=== PATIENT | male | born 1995 | race Caucasian/White ===

== ENCOUNTER 2017-09-23 20:22 | Inpatient (IN) | payer OTHER ==
[2017-09-23 21:36] LABS: ABS Basophils 0.1 10^3/ul (0-0.2); ABS Eosinophils 0.1 10^3/ul (0-0.6); ABS Lymphocytes 1.9 10^3/ul (1.0-4.8); ABS Monocytes 0.7 10^3/ul (0-0.8); ABS Neutrophils 5.3 10^3/ul (1.5-7.7); ABS Nucleated RBC 0 10^3/ul; Eosinophil % 1.1 % (0-6); Hematocrit 50 % (35-47); Hemoglobin 17.4 g/dl (12.0-16.0); Lymphocyte % 23.9 % (25-47); Mean Corpuscular HGB Conc 35 g/dl (31-36); Mean Corpuscular Hemoglobin 30 pg (27-31); Mean Corpuscular Volume 85 fL (80-97); Mean Platelet Volume 8.1 um3 (7.4-10.4); Nucleated Red Blood Cells % 0; Platelet Count 214 10^3/ul (150-450); Red Blood Count 5.86 10^6/ul (4.0-5.4); Red Cell Distribution Width 12 % (10.5-15); White Blood Count 8.1 10^3/ul (3.5-10.8)
[2017-09-23 21:57] LABS: Urine Appearance Cloudy; Urine Blood Negative (Negative); Urine Color Yellow; Urine Ketones Negative (Negative); Urine Protein Negative (Negative); Urine Specific Gravity 1.017 (1.010-1.030); Urine Urobilinogen Negative (Negative)
[2017-09-23 22:01] LABS: EGFR Non-African American 79.3 (>60)
[2017-09-24] MEDS ORDERED: diPHENhydraMINE PO* 50 MG PO PRN (01:50)
--- NOTE | 2017-09-24 03:24 | ED ---
Dominic Concepcion Jennifer, scribed for Sancho Severino MD on 09/23/17 at 2103 . Psychiatric Complaint - HPI Summary HPI Summary: The patient is a 22 year old male who was brought in 941 for SI and possession of a gun. The patient states he has recently had an increase in pressure and anxiety. He was found by police in the [facility] with a gun. He believes they found him by tracking his phone after he left a suicide letter. Patient states he doesnt think he wouldve hurt himself if the police hadnt found him. He states the gun was unloaded. The patient denies drug use and alcohol use. - History Of Current Complaint Chief Complaint: EDMentalHealth Time Seen by Provider: 09/23/17 20:50 Hx Obtained From: Patient Onset/Duration: Gradual Onset, Still Present, Other - Anxiety began about two years ago, has worsened recently Timing: Constant Severity Initially: Moderate Severity Currently: Moderate Character: Depressed, Anxious Aggravating Factor(s): Nothing Alleviating Factor(s): Nothing Has Suicidal: Reports: Thoughts, Demonstrates Gesture. Denies: With A Plan Has Homicidal: Denies: Thoughts, With A Plan - Allergies/Home Medications Allergies/Adverse Reactions: Allergies Allergy/AdvReac Type Severity Reaction Status Date / Time No Known Allergies Allergy Verified 09/23/17 20:28 Home Medications: Home Medications NK [No Home Medications Reported] 09/24/17 [History Confirmed 09/24/17] PMH/Surg Hx/FS Hx/Imm Hx Endocrine/Hematology History: Denies: Hx Diabetes EENT History: Denies: Hx Deafness Psychiatric History: Reports: Hx Anxiety Infectious Disease History: No Infectious Disease History: Denies: Traveled Outside the [place] in Last 30 Days - Family History Known Family History: Negative: Diabetes - Social History Occupation: Student Alcohol Use: Occasionally Hx Substance Use: No Hx Tobacco Use: No Review of Systems Negative: Fever Positive: Anxious, Depressed, Other - Denies HI All Other Systems Reviewed And Are Negative: Yes Physical Exam - Summary Physical Exam Summary: Appearance: Well appearing, no pain distress Skin: warm, dry, reflects adequate perfusion Head/face: normal Eyes: EOMI, TIERA ENT: normal Neck: supple, non-tender Respiratory: CTA, breath sounds present Cardiovascular: RRR, pulses symmetrical Abdomen: non-tender, soft Bowel Sounds: present Musculoskeletal: normal, strength/ROM intact Neuro: normal, sensory motor intact, A&Ox3 Psych: a little withdrawn, positive SI, negative HI Triage Information Reviewed: Yes Vital Signs On Initial Exam: Initial Vitals Temp Pulse Resp BP Pulse Ox 97.5 F 105 20 180/110 97 09/23/17 20:23 09/23/17 20:23 09/23/17 20:23 09/23/17 20:23 09/23/17 20:23 Vital Signs Reviewed: Yes Diagnostics - Vital Signs Vital Signs Temp Pulse Resp BP Pulse Ox 09/23/17 20:23 97.5 F 105 20 180/110 97 - Laboratory Lab Results: Lab Results 09/23/17 09/23/17 09/23/17 Range/Units 21:28 21:28 21:42 WBC 8.1 (3.5-10.8) 10^3/ul RBC 5.86 H (4.0-5.4) 10^6/ul Hgb 17.4 H (12.0-16.0) g/dl Hct 50 H (35-47) % MCV 85 (80-97) fL MCH 30 (27-31) pg MCHC 35 (31-36) g/dl RDW 12 (10.5-15) % Plt Count 214 (150-450) 10^3/ul MPV 8.1 (7.4-10.4) um3 Neut % (Auto) 65.3 (38-83) % Lymph % (Auto) 23.9 L (25-47) % [place] % (Auto) 9.1 H (0-7) % Eos % (Auto) 1.1 (0-6) % Baso % (Auto) 0.6 (0-2) % Absolute Neuts (auto) 5.3 (1.5-7.7) 10^3/ul Absolute Lymphs (auto) 1.9 (1.0-4.8) 10^3/ul Absolute Monos (auto) 0.7 (0-0.8) 10^3/ul Absolute Eos (auto) 0.1 (0-0.6) 10^3/ul Absolute Basos (auto) 0.1 (0-0.2) 10^3/ul Absolute Nucleated RBC 0 10^3/ul Nucleated RBC % 0 Sodium 141 (139-145) mmol/L Potassium 4.0 (3.5-5.0) mmol/L Chloride 104 (101-111) mmol/L Carbon Dioxide 30 (22-32) mmol/L Anion Gap 7 (2-11) mmol/L BUN 9 (6-24) mg/dL Creatinine 0.89 (0.51-0.95) mg/dL Est GFR ( Amer) 102.0 (>60) Est GFR (Non-Af Amer) 79.3 (>60) BUN/Creatinine Ratio 10.1 (8-20) Glucose 113 H (70-100) mg/dL Calcium 9.5 (8.6-10.3) mg/dL Total Bilirubin 0.80 (0.2-1.0) mg/dL AST 21 (13-39) U/L ALT 24 (7-52) U/L Alkaline Phosphatase 41 (34-104) U/L Total Protein 7.6 (6.4-8.9) g/dL Albumin 4.7 (3.2-5.2) g/dL Globulin 2.9 (2-4) g/dL Albumin/Globulin Ratio 1.6 (1-3) TSH 2.10 (0.34-5.60) mcIU/mL Urine Color Yellow Urine Appearance Cloudy Urine pH 6.0 (5-9) Ur Specific [place] 1.017 (1.010-1.030) Urine Protein Negative (Negative) Urine Ketones Negative (Negative) Urine Blood Negative (Negative) Urine Nitrate Negative (Negative) Urine Bilirubin Negative (Negative) Urine Urobilinogen Negative (Negative) Ur Leukocyte Esterase Negative (Negative) Urine Glucose Negative (Negative) Salicylates < 2.50 (<30) mg/dL Urine Opiates Screen (None Detect) Acetaminophen < 15 mcg/mL Ur Barbiturates Screen (None Detect) Ur Phencyclidine Scrn (None Detect) Ur Amphetamines Screen (None Detect) U Benzodiazepines Scrn (None Detect) Urine Cocaine Screen (None Detect) U Cannabinoids Screen (None Detect) Serum Alcohol < 10 (<10) mg/dL 09/23/17 Range/Units 21:42 WBC (3.5-10.8) 10^3/ul RBC (4.0-5.4) 10^6/ul Hgb (12.0-16.0) g/dl Hct (35-47) % MCV (80-97) fL MCH (27-31) pg MCHC (31-36) g/dl RDW (10.5-15) % Plt Count (150-450) 10^3/ul MPV (7.4-10.4) um3 Neut % (Auto) (38-83) % Lymph % (Auto) (25-47) % [place] % (Auto) (0-7) % Eos % (Auto) (0-6) % Baso % (Auto) (0-2) % Absolute Neuts (auto) (1.5-7.7) 10^3/ul Absolute Lymphs (auto) (1.0-4.8) 10^3/ul Absolute Monos (auto) (0-0.8) 10^3/ul Absolute Eos (auto) (0-0.6) 10^3/ul Absolute Basos (auto) (0-0.2) 10^3/ul Absolute Nucleated RBC 10^3/ul Nucleated RBC % Sodium (139-145) mmol/L Potassium (3.5-5.0) mmol/L Chloride (101-111) mmol/L Carbon Dioxide (22-32) mmol/L Anion Gap (2-11) mmol/L BUN (6-24) mg/dL Creatinine (0.51-0.95) mg/dL Est GFR ( Amer) (>60) Est GFR (Non-Af Amer) (>60) BUN/Creatinine Ratio (8-20) Glucose (70-100) mg/dL Calcium (8.6-10.3) mg/dL Total Bilirubin (0.2-1.0) mg/dL AST (13-39) U/L ALT (7-52) U/L Alkaline Phosphatase (34-104) U/L Total Protein (6.4-8.9) g/dL Albumin (3.2-5.2) g/dL Globulin (2-4) g/dL Albumin/Globulin Ratio (1-3) TSH (0.34-5.60) mcIU/mL Urine Color Urine Appearance Urine pH (5-9) Ur Specific [place] (1.010-1.030) Urine Protein (Negative) Urine Ketones (Negative) Urine Blood (Negative) Urine Nitrate (Negative) Urine Bilirubin (Negative) Urine Urobilinogen (Negative) Ur Leukocyte Esterase (Negative) Urine Glucose (Negative) Salicylates (<30) mg/dL Urine Opiates Screen None detected (None Detect) Acetaminophen mcg/mL Ur Barbiturates Screen None detected (None Detect) Ur Phencyclidine Scrn None detected (None Detect) Ur Amphetamines Screen None detected (None Detect) U Benzodiazepines Scrn None detected (None Detect) Urine Cocaine Screen None detected (None Detect) U Cannabinoids Screen None detected (None Detect) Serum Alcohol (<10) mg/dL Result Diagrams: 09/23/17 21:28 09/23/17 21:28 Lab Statement: Any lab studies that have been ordered have been reviewed, and results considered in the medical decision making process. Course/Dx - Course Course Of Treatment: The patient was seen and medically cleared by us. He is a very concerning history after he was found with a gun out in the [place] by police. They had been called after a suicide note was found. The patient admits that he is very high risk. He is medically cleared and evaluated by crisis. Following their evaluation he was accepted for admission. The patient was involuntarily admitted for unspecified depressive disorder per Dr. Steward. - Differential Dx/Clinical Impression Provider Diagnosis: Major depressive disorder, recurrent, unspecified - Physician Notifications Discussed Care Of Patient With: Oleg Steward Time Discussed With Above Provider: 02:29 Instructed by Provider To: Admit As Inpatient Discharge - Sign-Out/Discharge Documenting (check all that apply): Discharge/Admit/Transfer - Discharge Plan Condition: Fair [place] [place] Disposition and Condition Condition: FAIR [place]position: [facility] [place] The documentation as recorded by the Dominic engle Jennifer accurately reflects the service I personally performed and the decisions made by , Sancho Severino MD.
[2017-09-24] MEDS ORDERED: Acetaminophen TAB* 325 MG PO PRN (05:15)
[2017-09-24] MEDS ORDERED: Al Hydrox/Mg Hydrox/Simet LIQ* 30 ML UDC PO PRN (05:15)
[2017-09-24] MEDS: Vitamin THERAPEUTIC TAB PO SCH (10:28)
--- NOTE | 2017-09-24 22:20 | HP ---
HISTORY AND PHYSICAL: DATE OF ADMISSION: 09/24/17 SUPERVISING PSYCHIATRIST: Christopher Caldwell MD * (DICTATED BY CHARY FRANKLIN NP) JUSTIFICATION FOR ADMISSION: The patient was brought to the ED via police after an aborted suicide attempt. The patient merits hospitalization for immediate safety and stabilization. CHIEF COMPLAINT: "I've been super anxious and super depressed." HISTORY OF PRESENT ILLNESS: Aj is a 22-year-old [place] male, who lives in an apartment with 3 male roommates. 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 He reports this semester started out going fairly well, then had a significant increase in anxiety and depression. He endorses low energy, depressed mood, amotivation, anhedonia, and isolation. He reports increase in anxiety, especially with friends that he used to be comfortable around. He states that he has been avoiding classes and assignments. He reports panic attacks and describes increased heart rate, diaphoresis, and inability to concentrate. The patient reports he has had some weight gain since he stopped exercising. He used to do significant weightlifting. He used to be in organized sports including rugby, football, and track and field, especially shot put. He states that he had an onset of anxiety attacks during his sophomore year at [employer]. In the spring of that year which would have been 2015, he with the help of his advisor in [employer] , took a medical leave of absence for a year. He returned for his malia year in the fall of 2016. He states that semester was generally pretty good. He received As and Bs for grades. He started dating a woman named Yu who he is still dating and states that is going well. He has not disclosed mental health symptoms to her until last night. The patient states that he went to a final yesterday and instead of going to the classroom he went to an empty room and sat there in a paralyzed anxious state. He decided to walk home and happened to see his girlfriend and they had a minor verbal exchange. He states he does not recall exactly what happened from there, he states "I phased out." He states he got in his car, he drove to [facility] near the [facility]. He explains that he had a .22 caliber gun that he had bought for target shooting during his sophomore year and that this was loaded. He reports he had "a moment of clarity," unloaded the gun, drove to [place] and ate some food. He returned to [facility] and sat there for 2 hours. Prior to this, he had opened up a suicide note that he authored in June while home in [place]. He opened this letter on his laptop and was visible to his roommates, hence them calling police to find him via [place]. Today, the patient reports he is grateful that his friends acted and that he was brought to the hospital. He reports he is glad to be alive today. The patient reports one quirk in which he has to watch subtitles when watching programs on television, he counts the number of characters and it must be even before he can stop. He reports fidgeting and spinning his pen with his hands in high school, but otherwise denies obsessive or compulsive behaviors. The patient reports a history of self-harm or eating disorder. He denies history of suicide attempt previous to last night. PAST PSYCHIATRIC HISTORY: The patient attended [employer] for medical leave of absence in spring. He went to outpatient therapy through [facility] near his home in [place]. He denies prior psychiatric medications and states he is hesitant to take medications citing having friends who are addicted to benzodiazepines. The patient denies history of trauma or abuse. PAST MEDICAL HISTORY: Childhood asthma and a dislocated left shoulder when he was a child. He states he and his cousin were spinning around when this was dislocated. He denies surgical history, head injury, or seizure history. He does not have a current primary care provider and is not currently prescribed any medications. ALLERGIES: No known drug allergies. FAMILY PSYCHIATRIC HISTORY: The patient reports his mother has disclosed that she had panic attacks and was hospitalized in the [place] when she was younger. Other family psychiatric history is unknown as this is a taboo subject in his family. SOCIAL HISTORY: The patient is the eldest of 3 sons by parents, who are [place] immigrants. He was born and raised on [place], graduated from high school in 2013 with regular education diploma. As stated above, he attended [employer] as a freshman and sophomore, took a medical leave of absence and then returned in December 2016. He identifies as heterosexual and is currently dating and reports this is a positive relationship. He states his restorationism is Presbyterian. As stated above, his parents are . He has 2 younger brothers; 21-year-old, Bobby, who is attending [employer] and 14-year-old, Stuart, who lives at home with his parents. 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 He states that he has not been active in these since returning from medical leave. The patient denies legal and history. SUBSTANCE USE: The patient reports socially and occasionally drinking alcohol 2 to 3 drinks at a time and reports last so was last week. He states he smokes marijuana infrequently, last time was 2 to 3 weeks ago and states that he no longer likes the effect citing that it makes him feel sluggish and disconnected. He denies tobacco use. Denies other substance or prescription pill use. REVIEW OF SYSTEMS: Constitutional: Negative. No fever, chills, or fatigue. ENT: Negative. The patient is nearsighted and not wearing his contacts at the time of interview. Cardiovascular: Negative. Denies chest pain or palpitations. Respiratory: Negative. Denies shortness of breath or cough. Genitourinary: Negative. Musculoskeletal: Negative. Neurological: Negative. PHYSICAL EXAMINATION GENERAL: The patient is well appearing and well nourished. VITAL SIGNS: Height 5 feet 8 inches, weight 215 pounds. T 97.9, pulse 64, respirations 14, O2 saturation 98%, BP 136/75. HEENT: Normal head and face inspection. Eyes: Positive EOMI. PERRL. Conjunctivae clear. NECK: Supple. Full ROM. Trachea midline. RESPIRATORY: Lung sounds clear to auscultation. Breath sounds present. CARDIOVASCULAR: Heart RRR. Pulses are symmetrical in both upper and lower extremities. MUSCULOSKELETAL: Normal strength. ROM intact. NEUROLOGICAL: Normal sensory and motor intact. Alert and oriented x3. Normal gait. Cerebellar function intact. SKIN: Warm and dry. Color reflects adequate perfusion. MENTAL STATUS EXAM: The patient is a muscular build male wearing hospital scrubs and lying in bed. Upon approach, he is easy to arouse. He is cooperative and answers questions fully. He is alert and oriented x3. Concentration is poor. Memory is 2/3 with some remote memory depth. Fund of knowledge is excellent and he appears to be of average intelligence as demonstrated through vocabulary and academic achievements. Speech is soft, mumbled at times. Mood depressed. Affect restricted. Thought process is impoverished and circumstantial. Thought content positive for hopelessness, helplessness. He denies active suicidal ideation, but just yesterday had an aborted suicide attempt. Insight and judgment are poor at this time. LABORATORY DATA: CBC was remarkable for RBC high at 5.86, H and H 17.4 and 50. His CMP was within normal limits. TSH 2.10. Urinalysis negative. Toxicology negative for salicylates, acetaminophen and alcohol. Urine drug screen was negative, which is consistent with the patient's report. DIAGNOSES: Major depressive disorder, generalized anxiety disorder. ASSESSMENT: Aj is a 22-year-old [place] male, who presented to the emergency department after an aborted suicide attempt with his own .22 caliber shotgun. He endorses significant depression and anxiety, has a history of taking a medical leave due to anxiety. He is hesitant to take psychiatric medications and cites fear of abuse potential as he has friends who are addicted to benzodiazepines. The patient agrees to allow providers to reach out to the outpatient services as well as the [employer] asset [facility]. He states he is likely failing all of his classes this semester. PLAN: The patient is admitted to adult behavioral services unit on 9.39 status. His code status is full. He is placed on 15-minute checks for his safety. He is encouraged to participate in supportive milieu, individual sessions with staff and psychoeducational groups. We will obtain an MMPI for diagnostic clarification. We will continue to establish rapport and encourage therapeutic interventions. Estimated length of stay is 5 to 7 days. Discharge planning will include family involvement and outpatient providers per the patient's consent. CHARY FRANKLIN NP [id number]/CPS #: [id number] YOVANI
[2017-09-25] MEDS: Vitamin THERAPEUTIC TAB PO SCH (09:48)
--- NOTE | 2017-09-25 15:16 | PN ---
Subjective - Subjective Date of Service: 09/25/17 Service Type: 37143 Hosp care 35 min high complexity Subjective: Rayo and I spoke about depression, anxiety, and OCD. We talked about therapeutic interventions including CBT and medications. We discussed Zoloft and hydroxyzine. He was not enthusiastic about any option, but was most interested in Zoloft. He stated he wanted to think about it. Objective - Appearance Appearance: Healthy Appearing Dysmorphic Features: No Hygiene: Normal Grooming: Well Kept - Behavior Psychomotor Activities: Normal Exhibits Abnormal Movement: No - Attitude and Relatedness Attitude and Relatedness: Well Related Eye Contact: Good - Speech Quality: Unpressured Latencies: Normal Quantity: Appropriate - Mood Patient's Decription of Mood: "Okay" - Affect Observed Affect: Unvariable Affect Consistent with: Euthymia - Thought Process Patient's Thought Process: Coherent Thought Content: No Passive Wish, No Suicidal Planning, No Homicidal Ideation, No Paranoid Ideation - Sensorium Experiencing Hallucinations: No, Sensorium is Clear Type of Hallucinations: Visual: No, Auditory: No, Command: No - Level of Consciousness Level of Consciousness: Alert Orientation: Yes Intact, Yes Orientated to Time, Yes Orientated to Place, Yes Orientated to Person - Impulse Control Impulse Control: Impaired - Insight and Judgement Insight and Judgement: Fair - Group Participation Particating in Group Activities: Yes - Medication Management Medication Management Adherence: Yes - Additional Observations Comments: Rayo twitches his shoulders as if he has tight muscles in his back. He sits cross-legged on his bed. He appears very put together and calm, despite his rather desperate act of a few days ago. His idea may be to minimize what is happening to him, and he does show insight into why he actions would be troubling or alarming. He cannot offer any reassurances that he won't feel so desperate again. 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 He states he is no longer suicidal. Nothing has changed, however, and it is discouraging that Rayo is not willing to make pharmacological changes to his routine. Plan - Plan Treatment Plan: Name: RAYO MOROCHO Birthdate: 1995 [id number] Continued Medication Management: Consider Medication Medications: Current Medications Acetaminophen (Tylenol Tab*) 650 mg PO Q4H PRN PRN Reason: PAIN or TEMP > 101 F Al Hydrox/Mg Hydrox/Simethicone (Maalox Plus*) 30 ml PO Q4H PRN PRN Reason: INDIGESTION Multivitamins (Theragran Tab*) 1 tab PO DAILY SATYA Last Admin: 09/25/17 09:48 Dose: Not Given - Discharge Plan Discharge Plan: Outpatient Follow Up Outpatient Program: Counseling/Psych Services at [facility] Additional Comments: We will reassess with Rayo what course he would like to take regarding medications. Rayo is unenthusiastic about the idea and states the only medication he's seen his parents take is a pill for diabetes. We spent a long time discussing pharmacology which nudged him in the direction of taking Zoloft.
[2017-09-26] MEDS: Vitamin THERAPEUTIC TAB PO SCH (08:22)
--- NOTE | 2017-09-26 16:17 | PN ---
Subjective - Subjective Date of Service: 09/26/17 Service Type: [id number] Hosp care 15 min low complexity Subjective: Rayo maintains that he is doing well. He continues to endorse feeling better, having made a poor choice, that he has good insight now, and that he's opening up to others, which preserves his safety in the future. While he is saying reassuring things, his affect is bland and he says, "No worries," at such a great frequency that it is a curiosity to me. Objective - Appearance Dysmorphic Features: No Hygiene: Normal Grooming: Well Kept - Behavior Psychomotor Activities: Normal Exhibits Abnormal Movement: No - Attitude and Relatedness Attitude and Relatedness: Superficially Cooperative Eye Contact: Good - Speech Quality: Unpressured Latencies: Normal Quantity: Terse - Mood Patient's Decription of Mood: "Good" - Affect Observed Affect: Constricted Affect Consistent with: Euthymia - Thought Process Patient's Thought Process: Coherent, Goal Directed Thought Content: No Passive Wish - Rayo does not appear to be forthcoming , No Suicidal Planning, No Homicidal Ideation, No Paranoid Ideation - Sensorium Experiencing Hallucinations: No, Sensorium is Clear Type of Hallucinations: Visual: No, Auditory: No, Command: No - Level of Consciousness Level of Consciousness: Alert Orientation: Yes Intact, Yes Orientated to Time, Yes Orientated to Place, Yes Orientated to Person - Impulse Control Impulse Control: Intact - Insight and Judgement Insight and Judgement: Fair - Group Participation Particating in Group Activities: Yes - Additional Observations Comments: He sits on his bed and appears very put together and calm, despite his rather desperate act of a few days ago. His idea may be to minimize what is happening to him. He appears to be not forthcoming about his real emotions and tries to put together a calm and easy atmosphere. He has some insight into getting more social support in his life. 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 He states he is no longer suicidal. Nothing has changed, however, and it is discouraging that Rayo is not willing to make pharmacological changes to his routine. Further, he is not engaging in group programming. His presentation is not reassuring. Plan - Plan Treatment Plan: Name: RAYO MOROCHO Birthdate: 1995 [id number] Medications: Current Medications Acetaminophen (Tylenol Tab*) 650 mg PO Q4H PRN PRN Reason: PAIN or TEMP > 101 F Al Hydrox/Mg Hydrox/Simethicone (Maalox Plus*) 30 ml PO Q4H PRN PRN Reason: INDIGESTION Multivitamins (Theragran Tab*) 1 tab PO DAILY [facility] Last Admin: 09/26/17 08:22 Dose: Not Given - Discharge Plan Additional Comments: We will reassess with Rayo what course he would like to take regarding medications. Rayo is unenthusiastic about the idea and states the only medication he's seen his parents take is a pill for diabetes. He has still not decided whether he will take medication and requests a print out about Zoloft. We will continue to pursue his need to participate in programming and/or take medications.
--- NOTE | 2017-09-27 12:52 | PN ---
Subjective - Subjective Date of Service: 09/27/17 Service Type: [id number] Hosp care 25 min moderate complexity Subjective: Patient has been sleeping until late mornings and reading fiction novels while awake. He states he has read 4 large novels since admission. According to staff, he is minimally engaged in programming. During meeting with entry writer, patient minimizes need for treatment for depression or anxiety citing that he knows much about these topics. He does agree to start trial of an SSRI. We discussed importance of safety planning and after care during initial 1-2 months of psychopharmacology. Objective - Appearance Appearance: Well Developed/Nourished Dysmorphic Features: No Hygiene: Normal Grooming: Well Kept - Behavior Psychomotor Activities: Normal Exhibits Abnormal Movement: No - Attitude and Relatedness Attitude and Relatedness: Superficially Cooperative Eye Contact: Fair - Speech Quality: Unpressured Latencies: Normal Quantity: Terse - Mood Patient's Decription of Mood: "Good" - Affect Observed Affect: Constricted Affect Consistent with: Dysphoria - Thought Process Patient's Thought Process: Circumstantial Thought Content: No Passive Wish, No Suicidal Planning, No Homicidal Ideation, No Paranoid Ideation - Sensorium Experiencing Hallucinations: No, Sensorium is Clear Type of Hallucinations: Visual: No, Auditory: No, Command: No - Level of Consciousness Level of Consciousness: Alert Orientation: Yes Intact, Yes Orientated to Time, Yes Orientated to Place, Yes Orientated to Person - Impulse Control Impulse Control: Poor - Insight and Judgement Insight and Judgement: Poor - Group Participation Particating in Group Activities: No - Medication Management Medication Management Adherence: Yes Assessment - Assessment Merits Inpatient Hospitalization: For Immediate Safety Inpatient DSM-V Dx: F33.2 Plan - Plan Treatment Plan: Name: RAYO MOROCHO Birthdate: 1995 [id number] continue acute intensive psychiatric treatment. decrease to q30 min observation and allow computer use and staff pass. start sertraline 50mg daily. Continued Medication Management: Start Medication Medications: Current Medications Acetaminophen (Tylenol Tab*) 650 mg PO Q4H PRN PRN Reason: PAIN or TEMP > 101 F Al Hydrox/Mg Hydrox/Simethicone (Maalox Plus*) 30 ml PO Q4H PRN PRN Reason: INDIGESTION Multivitamins (Theragran Tab*) 1 tab PO DAILY [facility] Last Admin: 09/26/17 08:22 Dose: Not Given Sertraline HCl (Zoloft*) 50 mg PO DAILY [facility] - Discharge Plan Discharge Plan: Outpatient Follow Up
[2017-09-27] MEDS: Sertraline* 50 MG TAB PO SCH (13:15)
[2017-09-27] MEDS: Vitamin THERAPEUTIC TAB PO SCH (13:16)
[2017-09-28] MEDS: Sertraline* 50 MG TAB PO SCH (08:47)
[2017-09-28] MEDS: Vitamin THERAPEUTIC TAB PO SCH (08:47)
--- NOTE | 2017-09-28 16:06 | PN ---
Subjective - Subjective Date of Service: 09/28/17 Service Type: 41443 Hosp care 15 min low complexity Subjective: Rayo says he has been feeling better after beeing able to talk to other patients on the unit. Hasn't been thinking about suicide today. Feels happier and energetic/ motivated. Took Zoloft and tolerated well. Objective - Appearance Appearance: Well Developed/Nourished Dysmorphic Features: No Hygiene: Normal Grooming: Well Kept - Behavior Psychomotor Activities: Normal Exhibits Abnormal Movement: No - Attitude and Relatedness Attitude and Relatedness: Appropriate Eye Contact: Good - Speech Quality: Unpressured Latencies: Normal Quantity: Appropriate - Mood Patient's Decription of Mood: "Fine" - Affect Observed Affect: Non-labile Affect Consistent with: Euthymia - Thought Process Patient's Thought Process: Coherent, Goal Directed - Sensorium Experiencing Hallucinations: No, Sensorium is Clear Type of Hallucinations: Visual: No, Auditory: No, Command: No - Level of Consciousness Level of Consciousness: Alert Orientation: Yes Intact, Yes Orientated to Time, Yes Orientated to Place, Yes Orientated to Person - Insight and Judgement Insight and Judgement: Fair - Group Participation Particating in Group Activities: Yes - Medication Management Medication Management Adherence: Yes Assessment - Assessment Merits Inpatient Hospitalization: For Stabilization, Consolidate Improvements, Pending Safe DC Plan Inpatient DSM-V Dx: F33.2 Plan - Plan Treatment Plan: Name: RAYO MOROCHO Birthdate: 1995 [id number] Continued Medication Management: Continue Outpt Medication Medications: Current Medications Acetaminophen (Tylenol Tab*) 650 mg PO Q4H PRN PRN Reason: PAIN or TEMP > 101 F Al Hydrox/Mg Hydrox/Simethicone (Maalox Plus*) 30 ml PO Q4H PRN PRN Reason: INDIGESTION Multivitamins (Theragran Tab*) 1 tab PO DAILY [facility] Last Admin: 09/28/17 08:47 Dose: 1 tab Sertraline HCl (Zoloft*) 50 mg PO DAILY [facility] Last Admin: 09/28/17 08:47 Dose: 50 mg - Discharge Plan Discharge Plan: Outpatient Follow Up Outpatient Program: Counseling/Psych Services at [place]
[2017-09-29] MEDS: Vitamin THERAPEUTIC TAB PO SCH (10:09)
[2017-09-29] MEDS: Sertraline* 50 MG TAB PO SCH (10:09)
[2017-09-30] MEDS: Sertraline* 50 MG TAB PO SCH (10:14)
[2017-09-30] MEDS: Vitamin THERAPEUTIC TAB PO SCH (10:14)
--- NOTE | 2017-09-30 11:43 | PN ---
Subjective - Subjective Date of Service: 09/30/17 Service Type: [id number] Hosp care 15 min low complexity Subjective: Rayo is not particularly interested in talking today as his girlfriend has been crying in his room for at least half an hour. He is not particularly interested in talking about what is making her cry. He does say he feels like he 's handling whatever it is better than she is and that she's more distressed than he is. He is taking his medications and wonders if it's helping him feel better. He slept in this morning. Objective - Appearance Appearance: Well Developed/Nourished Dysmorphic Features: No Hygiene: Normal Grooming: Fairly Well Kept - Behavior Psychomotor Activities: Normal Exhibits Abnormal Movement: No - Attitude and Relatedness Attitude and Relatedness: Superficially Cooperative Eye Contact: Good - Speech Quality: Unpressured Latencies: Normal Quantity: Terse - Mood Patient's Decription of Mood: "Good" - Affect Observed Affect: Good Affect Consistent with: Euthymia - Thought Process Patient's Thought Process: Coherent Thought Content: No Passive Wish, No Suicidal Planning, No Homicidal Ideation, No Paranoid Ideation - Sensorium Experiencing Hallucinations: No, Sensorium is Clear Type of Hallucinations: Visual: No, Auditory: No, Command: No - Level of Consciousness Level of Consciousness: Alert Orientation: Yes Intact, Yes Orientated to Time, Yes Orientated to Place, Yes Orientated to Person - Impulse Control Impulse Control: Intact - Insight and Judgement Insight and Judgement: Fair - Group Participation Particating in Group Activities: Yes - Medication Management Medication Management Adherence: Yes - Additional Observations Comments: He sits on his bed holding his crying girlfriend and appears very put together and calm, despite his rather desperate act of a few days ago and her sobbing. He tries to put together a calm and easy atmosphere. He does seem calm and pleasant. He seems marginally less superficial than he has in previous days. Assessment - Assessment Merits Inpatient Hospitalization: For Immediate Safety Inpatient DSM-V Dx: F33.2 Clinical Impression: Rayo is a 22-year-old man who is a malia at [place] who recently went into the [facility] with a loaded gun prepared to shoot himself until he had a "moment of clarity." Rayo is pleasant, consistently smiling or pleasant during interview. He states he is no longer suicidal. He does seem somewhat more appropriately goal directed than he had been before. Plan - Plan Treatment Plan: Name: RAYO MOROCHO Birthdate: 1995 [id number] Medications: Current Medications Acetaminophen (Tylenol Tab*) 650 mg PO Q4H PRN PRN Reason: PAIN or TEMP > 101 F Al Hydrox/Mg Hydrox/Simethicone (Maalox Plus*) 30 ml PO Q4H PRN PRN Reason: INDIGESTION Multivitamins (Theragran Tab*) 1 tab PO DAILY [facility] Last Admin: 09/30/17 10:14 Dose: 1 tab Sertraline HCl (Zoloft*) 50 mg PO DAILY [facility] Last Admin: 09/30/17 10:14 Dose: 50 mg - Discharge Plan Discharge Plan: Outpatient Follow Up Additional Comments: We will continue to pursue his need to participate in programming. He has agreed to try Zoloft and feels like it might be helpful. He is eager for discharge.
--- NOTE | 2017-10-01 13:42 | PN ---
[facility]: Group Therapy Note - Service Type Service Type: [id number] Group Psychotherapy - Cognitive Behavioral Group Therapy ( CBT):Patient was attentive and participatory in CBT programming this morning, and remained in good behavioral control. Patient expressed positive insights regarding relevant treatment interventions and goals.
--- NOTE | 2017-10-01 13:45 | PN ---
Subjective - Subjective Date of Service: 10/01/17 Service Type: [id number] Hosp care 25 min moderate complexity Subjective: Patient reports improved mood and attributes this to talking moreso about his emotions and thoughts. He states he, his mother and his girlfriend spoke much this weekend. He states that he realized that depression worsened over this semester and that being unable to attend a final exam was a breaking point. He states that he intends to dispose of both of his firearms. He gives permission for chief underwriter to call his mother and discuss safety and discharge planning. Benzene Operator spoke with patient's mother, Mrs. Morocho. She visited him on saturday and saturday. He was emotional on saturday, discussing events leading to admission. She states he was more talkative and exhibited improved mood on Saturday. She gives chief underwriter information about local internal doctor for medication follow up. We discuss safety planning, including disposing of firearms and she is instructed to call local police department. Objective - Appearance Appearance: Well Developed/Nourished Dysmorphic Features: No Hygiene: Normal Grooming: Well Kept - Behavior Psychomotor Activities: Normal Exhibits Abnormal Movement: No - Attitude and Relatedness Attitude and Relatedness: Cooperative Eye Contact: Good - Speech Quality: Unpressured Latencies: Normal Quantity: Appropriate - Mood Patient's Decription of Mood: "Good" - Affect Observed Affect: Good Affect Consistent with: Euthymia - Thought Process Patient's Thought Process: Coherent, Goal Directed Thought Content: No Passive Wish, No Suicidal Planning, No Homicidal Ideation, No Paranoid Ideation - Sensorium Experiencing Hallucinations: No, Sensorium is Clear Type of Hallucinations: Visual: No, Auditory: No, Command: No - Level of Consciousness Level of Consciousness: Alert Orientation: Yes Intact, Yes Orientated to Time, Yes Orientated to Place, Yes Orientated to Person - Impulse Control Impulse Control: Intact - Insight and Judgement Insight and Judgement: Good - Group Participation Particating in Group Activities: Yes - Medication Management Medication Management Adherence: Yes Assessment - Assessment Merits Inpatient Hospitalization: For Immediate Safety, For Stabilization, For Discharge Planning Inpatient DSM-V Dx: F33.2 Clinical Impression: 22yo male with history of anxiety who presented to ED via police after an aborted suicide attempt. He has demonstrated improved insight into mental health. He agrees to therapeutic interventions, including counseling and medication (sertraline). Plan - Plan Treatment Plan: Name: RAYO MOROCHO Birthdate: 1995 [id number] continue acute intensive psychiatric treatment. continue sertraline 50mg daily. pending discharge 10/02/17. Continued Medication Management: Start Medication Medications: Current Medications Acetaminophen (Tylenol Tab*) 650 mg PO Q4H PRN PRN Reason: PAIN or TEMP > 101 F Al Hydrox/Mg Hydrox/Simethicone (Maalox Plus*) 30 ml PO Q4H PRN PRN Reason: INDIGESTION Multivitamins (Theragran Tab*) 1 tab PO DAILY [facility] Last Admin: 09/30/17 10:14 Dose: 1 tab Sertraline HCl (Zoloft*) 50 mg PO DAILY [facility] Last Admin: 09/30/17 10:14 Dose: 50 mg - Discharge Plan Discharge Plan: Outpatient Follow Up Outpatient Program: Private Clinician(s)
[2017-10-01] MEDS: Vitamin THERAPEUTIC TAB PO SCH (13:47)
[2017-10-01] MEDS: Sertraline* 50 MG TAB PO SCH (13:47)
[2017-10-02 07:56] VITALS: BP 123/82
[2017-10-02] MEDS: Sertraline* 50 MG TAB PO SCH (10:26)
[2017-10-02] MEDS: Vitamin THERAPEUTIC TAB PO SCH (10:26)
--- NOTE | 2017-10-03 11:23 | DS ---
CC: Ramon NEAL; Dr. Yanez; [place], [place] DISCHARGE SUMMARY: DATE OF ADMISSION: 09/24/17. DATE OF DISCHARGE: 10/02/17. SUPERVISING PHYSICIAN: Christopher Caldwell MD. DISCHARGE DIAGNOSES: Major depressive disorder with anxious distress. CONDITION AT THE TIME OF DISCHARGE: Improved. The patient has been more interactive in groups and interactions with peers and staff. He has gained insight into need for treatment for major depressive disorder. He is evaluating his recent months and identifying that he has been increasingly depressed. The patient reports he identifies that isolating and not talking with those close to him about his emotional state was a contributing factor to worsening mental health. While on the unit, the patient has agreed to initial trial of sertraline and tolerated this well with no untoward effects. He has noted to have improved energy, motivation, and of course mood. This auto service writer spoke with his mother, Mrs. Gardner in [place], [place], discussed safety planning including disposing of his firearms by way of local police. We also discussed medication safety and followup appointments as will be discussed below. This auto service writer reported the patient on the [employer] [facility] web site for risk of harm to himself specifically in regards to the firearms, I reached out to [facility]'s Department in identifying that Shorty Kingsley and deputy [place] were on site and confiscated the patient's firearms , . MENTAL STATUS EXAM: The patient is a muscular built, -Slovenian male, wearing his own clothing with adequate grooming and posture. He is cooperative and answers questions fully. Alert and oriented x3. His concentration is good. Memory is 3/3. Eye contact is good. Speech is soft and articulate. His mood is euthymic. Affect is full range. Thought process is logical and goal directed. Thought content negative for depressed mood, SI, HI, or . Insight and judgment are improved and intact at this time. DISCHARGE INSTRUCTIONS GIVEN TO THE PATIENT: A. Medications: 1. He will continue on sertraline 50 mg, this was electronically prescribed to the [facility] pharmacy, and he was given a 2-week supply. B. Diet is regular. C. Activities: Ambulation as tolerated. Tobacco cessation is not applicable. There are no studies pending at the time of discharge. D. Followup care: The patient will follow up initially with primary care provider, Dr. Brady in [place], [place], and has an initial appointment with her on 10/08/17 at 3:45 p.m. He will return to [place] for the summer and see a therapist by the name of Millicent Rg initially on 10/11/17, at 7:00 p.m. Also, the patient was instructed to follow up with [facility] and [facility] upon return to [facility]. E. Substance abuse followup is not applicable and there are no studies pending at the time of discharge. HOSPITAL COURSE: A. Reason for admission. The patient presented to the ED via police after an aborted suicide attempt. Aj is a Italian-[place]ovenian male and a malia at [employer]. He reported this semester started going on fairly well then had a significant increase in the anxiety and depression. He endorses low energy, depressed mood, amotivation, anhedonia, and isolation. He reports increase in anxiety especially with friends that he used to be comfortable around. He states he has been avoiding classes and assignments. He reports panic attacks, described increased heart rate, diaphoresis and inability to concentrate. The patient reports that he has had some weight gains since he stopped exercising. He used to do significant weightlifting. He used to be in organized sports including rugby, football, and track and field , especially shot put. He states he had an onset of anxiety attacks during his sophomore year at [employer]. In the spring of that year, in 2015, with the help of an advisor in [facility], he took a medical leave of absence for 1 year. He returned for his malia year in the fall of 2016. He states that semester was generally pretty good. He received A's and B's for grades. He started dating a woman, who he is still dating and states that is going well. Prior to the day of admission, the patient went to final exams and instead of going to the classroom he went to an empty room and sat there in a paralyzed anxious state. He decided to walk home. He did not recall the events exactly, but endorsed getting into his car with a shot gun that he had brought for target shooting during his sophomore year. He drove to [facility] near the [facility]. He states he had "a moment of clarity," unloaded the gun, drove to [place] and ate some food. He returned to [facility] and sat there for 2 hours. Prior to leaving his apartment, he had opened up a suicide note on his laptop that he had authored in June while home in [place]. He opened this letter to make it visible to his roommate, hence they called police and found him via [employer] Maps on his phone. The patient was then brought by the [facility] to the hospital. B. Psychiatric treatment rendered. The patient was admitted to adult behavioral services unit on status. Code status is full. He was placed on 15-minute checks for safety, and encouraged to participate in supportive milieu, individual sessions with staff and psychoeducational groups. He completed an MMPI, which endorsed depression. Please see full report from psychologist, Dr. Aj Lindquist. After the admission, the patient was seclusive to room and minimally interactive with staff and peers. He minimized events leading to admission and seemed to be superficially engaged. After a few days on the unit, the patient agreed to a trial of an antidepressant and started on sertraline 50 mg. He tolerated this well. He was increasingly interactive and participating in programming. Both his mother visited as did his girlfriend on the unit. The patient reported increased communication with both of them and between the two of them in regards to his decline of mental health over the past year. The patient coordinated with [employer] assistant guest services manager and his advisor in regards to academic standings. After 1 week of admission, the patient exhibited increase in insight. He was safe on all checks, so he had been decreased to 30 minute observation and allowed to go on staff pass, and use the computer. He was encouraged to have a phone intake for therapist near his home in [place], which he did so. He was encouraged to utilize the computer to coordinate with [employer] professors, which he did. He stated understanding of importance of safety planning. He states that he plans to sell one of the firearms and the other one he would like to dispose of appropriately as it is not functioning. This auto service writer discussed this with his mother as well as stated above. The patient reported readiness for discharge and discharge planning included him returning to [place] on the day of discharge. CHARY FRANKLIN, BUDGET DIRECTOR [id number]/[facility] #: [id number] [facility] L[facility] MEM[facility]IAL HOSPITALEmerald
== END 2017-10-02 11:20 | disposition home or self-care (01) | DRG 885 ==
LOC: EDSEX → ED 20:22 → BSU 09-24 01:50
PROVIDERS: ADMIT Psychiatry & Neurology Psychiatry; ATTEND Psychiatry & Neurology Psychiatry
DX: F33.2 Major depressive disorder, recurrent severe without psychotic features (principal); R45.851 Suicidal ideations; F41.8 Other specified anxiety disorders; Z81.8 Family history of other mental and behavioral disorders
CPT/HCPCS: 36415; 80053; 80307; 80320; 80329; 81003; 84443; 85025; 90853; 99222; 99231; 99232; 99233; 99238; 99285; A9270-GY; G0480